=== PATIENT | male | born 1980 | race Caucasian/White ===

== ENCOUNTER 2024-11-05 22:24 | Emergency (ER) | payer SELFPAY ==
[~2024-11-05] VITALS: Ht 185.4 cm; Wt 122.7 kg
[2024-11-05 22:33] VITALS: TEMP 98.2; O2SAT 99
[2024-11-05 23:02] VITALS: BP 172/97; PULSE 106; RESP 16
== END 2024-11-05 23:55 | disposition left against medical advice (07) ==
LOC: EMS 22:24
DX: R45.851 Suicidal ideations (principal); Z53.21 Procedure and treatment not carried out due to patient leaving prior to being seen by health care provider